=== PATIENT | female | born 1985 | race Two or more races ===

== ENCOUNTER 2016-10-03 03:55 | Emergency (ER) | payer MEDICAID ==
[2016-10-03 04:03] VITALS: BP 129/82; PULSE 90; RESP 18; TEMP 99.3; O2SAT 96
[2016-10-03] MEDS ORDERED: DEXAMETHASONE 4 MG TAB PO ONE (04:29)
[2016-10-03] MEDS ORDERED: ONDANSETRON DISINTEGRATING 4 MG TAB PO ONE (04:30)
[2016-10-03] MEDS ORDERED: HYDROCODONE/APAP 5/325 TAB PO ONE (04:30)
--- NOTE | 2016-10-03 04:36 | EDPHY ---
H & P Time Seen by Provider: 10/03/16 04:01 HPI/ROS: Chief complaint: Sore throat History of present illness: This is a 31-year-old female presents emergency department today with sharp throat pain. She [place] and she felt her throat starting to hurt and felt like it was swelling up. She had a fever of up to 101 F. She denies having shortness of breath, difficulty swallowing but does admit to a sharp and throbbing diffuse headache and body aches. She has been experiencing some chills as well and feels slightly nauseated. Taking fluids well. She denies rash, lightheadedness, visual disturbance, stiff neck, ear pain, cough, or abdominal pain. First day last menstrual period 1 week ago. Has Mirena. The remainder of a 10pt ROS is normal. Past Medical/Surgical History: PMH: kidney stones during PSH: jace, tonsils FH: Father at 49 secondary to [place], DM; Mother alive but had CAD diagnosed in her 40s NKDA Meds: Mirena, occasional Tylenol Social History: Tobacco: 1/2 ppd ETOH: Denied THC50: Daily PCP: [facility] Smoking Status: Current every day smoker Physical Exam: General Appearance: Alert, mild distress. Speaks in full sentences; no drooling Skin: warm, no rash Eyes: Pupils equal and round no pallor or injection. ENT, Mouth: Mucous membranes moist, posterior oropharynx with marked erythema, possible ulceration right; no exudate, uvula midline, no swelling, no petechiae. Neck: supple, tenderness anterior cervical chain right > left; no palpable masses or lymphadenopathy; No meningeal signs. Respiratory: There are no retractions, lungs are clear to auscultation. Cardiovascular: Regular rate and rhythm. Gastrointestinal: Abdomen is soft and nontender, no masses, bowel sounds normal. Neurological: CN II-XII grossly intact, non focal exam; moves all extremities well; gait normal Skin: Warm and dry, no rashes. Musculoskeletal: Neck is supple nontender. Extremities are symmetrical, full range of motion. Psychiatric: Patient is oriented X 3, there is no agitation. DIFFERENTIAL DIAGNOSIS: After history and physical exam differential diagnosis was considered for [ ] Constitutional: Initial Vital Signs Temperature (C) 99.3 F 10/03/16 04:00 Heart Rate 90 07/24/17 04:00 Respiratory Rate 18 10/03/16 04:00 Blood Pressure 129/82 H 10/03/16 04:00 O2 Sat (%) 96 10/03/16 04:00 O2 Delivery Mode Room Air Allergies/Adverse Reactions: No Known Allergies Allergy (Verified 07/16/15 13:34) Home Medications: Medication Instructions Recorded Amoxicillin Trihydrate 2 cap PO Q12H 7 Days 07/16/15 [Amoxicillin 500mg capsule] Hydrocodone/Acetaminophen [[place] 1 - 2 tab PO Q4H PRN #12 tab 07/16/15 5/325 (*)] Multi-Day Vitamins 07/16/15 AMOXICILLIN TRIHYDRATE [Amoxil] 875 mg PO BID #14 tablet 10/03/16 Ondansetron Odt [Zofran Odt 4 mg 4 mg PO TID PRN #6 tab 10/03/16 (*)] predniSONE 20 mg PO BID #20 tablet 10/03/16 Medical Decision Making ED Course/Re-evaluation: The patient was seen and examined, vital signs reviewed. Rapid strep negative, culture pending. The patient was given Decadron 10 mg orally, [place] 07/3251 tablets orally, as well as Zofran 4 mg oral dissolving tablet. She declined IV fluids. She will be given a take-home pack of [place] and a short course of oral steroids and Zofran. She will follow up with her PCP if no improvement or return to the ER sooner if symptoms worsen as discussed. Differential Diagnosis: Includes but is not limited to: Strep throat, viral pharyngitis, viral syndrome , headache, myalgias; no sign of meningitis, peritonsillar or retroperitoneal abscess, mono, Ha's angina - Data Points Laboratory Results: 10/03/16 10/03/16 Unknown 04:10 Group A Strep Screen NEGATIVE (NEGATIVE) Group A Strep DNA Pending Departure - Departure Disposition: Home, Routine, Self-Care Clinical Impression: Pharyngitis Condition: Good Instructions: Pharyngitis (ED), Dexamethasone (By mouth), Prednisone (By mouth) , Ondansetron (By mouth), Amoxicillin (By mouth), Hydrocodone/Acetaminophen (By mouth) Additional Instructions: Only start the amoxicillin if your strep culture returns positive (the result should be back in 2 days). Rest, drink plenty of fluids. Follow up with your doctor if no improvement or return to the ER sooner if worse as discussed. Referrals: Patient,NotPresent [Primary Care Provider] - As per Instructions [facility]. [Clinic] - 2-3 days, if not improved Stand Alone Forms: Work Excuse Prescriptions: AMOXICILLIN TRIHYDRATE [Amoxil] 875 mg PO BID #14 tablet Ondansetron Odt [Zofran Odt 4 mg (*)] 4 mg PO TID PRN #6 tab PRN Reason: Nausea/Vomiting, Use 1st predniSONE 20 mg PO BID #20 tablet
[2016-10-03] MEDS ORDERED: HYDROCOD/APAP 5/325 PREPACK#6 BTL TAKEHOME ONE (04:49)
== END 2016-10-03 05:14 | disposition home or self-care (01) ==
LOC: CED 03:55
DX: J02.9 Acute pharyngitis, unspecified (principal); F17.200 Nicotine dependence, unspecified, uncomplicated
CPT/HCPCS: 87880-PO

== ENCOUNTER 2017-01-03 13:37 | Emergency (ER) | payer MEDICAID ==
[2017-01-03 13:47] VITALS: TEMP 99.1
[2017-01-03] MEDS ORDERED: NS 1,000 ML IV ONE (13:58)
[2017-01-03] MEDS ORDERED: ONDANSETRON 4 MG/2 ML VIAL IVP ONE (13:58)
[2017-01-03] MEDS ORDERED: KETOROLAC 30 MG/1 ML SDV IVP ONE (13:58)
[2017-01-03] MEDS ORDERED: KETOROLAC 15 MG/1 ML SDV ONE (14:00)
--- NOTE | 2017-01-03 14:00 | EDPHY ---
H & P Stated Complaint: N/V/D since last pm. thinks "food poisoning" Source: Patient Exam Limitations: No limitations - Personal History LMP (Females 10-55): IUD In Place Current Tetanus Diphtheria and Acellular Pertussis (TDAP): Yes - Medical/Surgical History Hx Asthma: No Hx Chronic Respiratory Disease: No Hx Diabetes: No Hx Cardiac Disease: No Hx Renal Disease: No Hx Cirrhosis: No Hx Alcoholism: No Hx HIV/AIDS: No Hx Splenectomy or Spleen Trauma: No Other PMH: med hx-kidney stones and urosepsis. surg-tonsils,adenoids, cholycystectomy - Family History Significant Family History: No pertinent family hx - Social History Smoking Status: Heavy smoker Alcohol Use: Sober Drug Use: None Time Seen by Provider: 01/03/17 13:49 HPI/ROS: CHIEF COMPLAINT: Vomiting HISTORY OF PRESENT ILLNESS: The patient is a 31-year-old female with history only significant for cholecystectomy who comes to the emergency department complaining nausea vomiting and diarrhea for the last 16 hours. She thinks that she has food poisoning does not sure what she ate. She has had a temperature up to 101. No blood in her stool or vomit. She complains of abdominal cramping but denies tenderness. She denies risk of . No urinary symptoms. No cardiac or pulmonary symptoms. REVIEW OF SYSTEMS: Constitutional: denies: chills, fever, recent illness, recent injury EENTM: denies: blurred vision, double vision, nose congestion Respiratory: denies: cough, shortness of breath Cardiac: denies: chest pain, irregular heart rate, lightheadedness, palpitations Gastrointestinal/Abdominal: See HPI Genitourinary: denies: dysuria, frequency, hematuria, pain Musculoskeletal: denies: joint pain, muscle pain Skin: denies: lesions, rash, jaundice, bruising Neurological: denies: headache, numbness, paresthesia, tingling, dizziness, weakness Hematologic/Lymphatic: denies: blood clots, easy bleeding, easy bruising Immunologic/allergic: denies: HIV/AIDS, transplant EXAM: GENERAL: Well-appearing, well-nourished and in no acute distress. HEAD: Atraumatic, normocephalic. EYES: Pupils equal round and reactive to light, extraocular movements intact, sclera anicteric, conjunctiva are normal. ENT: TMs normal, nares patent, oropharynx clear without exudates. Moist mucous membranes. NECK: Normal range of motion, supple without lymphadenopathy or JVD. LUNGS: Breath sounds clear to auscultation bilaterally and equal. No wheezes rales or rhonchi. HEART: Regular rate and rhythm without murmurs, rubs or gallops. ABDOMEN: Soft, nontender, normoactive bowel sounds. No guarding, no rebound. No masses appreciated. BACK: No CVA tenderness, no spinal tenderness, step-offs or deformities EXTREMITIES: Normal range of motion, no pitting or edema. No clubbing or cyanosis. NEUROLOGICAL: Cranial nerves II through XII grossly intact. Normal speech, normal gait. 5/5 strength, normal movement in all extremities, normal sensation PSYCH: Normal mood, normal affect. SKIN: Warm, dry, normal turgor, no visible rashes or lesions. (Keron Tolbert) Constitutional: Initial Vital Signs Temperature (C) 37.3 C 01/03/17 13:41 Heart Rate 97 01/03/17 13:41 Respiratory Rate 16 01/03/17 13:41 Blood Pressure 120/87 H 01/03/17 13:41 O2 Sat (%) 96 01/03/17 13:41 O2 Delivery Mode Room Air Allergies/Adverse Reactions: No Known Allergies Allergy (Verified 01/03/17 13:47) Home Medications: Medication Instructions Recorded Multi-Day Vitamins 07/16/15 Dicyclomine [Bentyl 10 MG (*)] 10 mg PO QID PRN #6 cap 01/03/17 Fish Oil 1,000 mg Capsule 01/03/17 Ondansetron Odt [Zofran Odt 4 mg 4 mg PO Q4 PRN #6 tab 01/03/17 (*)] Medical Decision Making ED Course/Re-evaluation: I assumed care of this patient at change of shift, 1500 hours. I discussed the case with the off going physician. As reflected in their note, this is a woman with a viral syndrome without any focal tenderness or focal abdominal pain. At that time she had already received Zofran 4 mg and ketorolac 15 mg and was feeling better as far as her abdominal distress and nausea. However, as she is still having some cramping they subsequently gave IV dosing of lidocaine and p.o. Bentyl. As she had evidence of volume depletion she was given 2 L of normal saline. I reviewed the chart and examine the patient as well as injury the patient She essentially has no risk factors for bacterial dysentery: Travel: None Others: None Antibiotics: None Bad Food: None Bad Water: None Recent Surgery: None Illness started at 7:00 p.m. last night. Throughout the evening and into the night she had multiple episodes of both diarrhea and vomiting, at times concomitantly. There is no syncope though she did feel weak. She has been unable to handle any fluids since 6:00 p.m. last night. She feels quite try the mouth and still does so even though she has already she had 2 L of fluid by 3:50 p.m. for her clinical signs of volume depletion. The weakness she had was standing has since resolved. In fact she feels markedly improved. Throughout the night there was generalized diffuse migratory abdominal pain. She is able to stand at all times and there is no pain with walking or standing erect or the bumps in the road on the car ride here. She has had no known exposure. No one else is currently sick. At this point in time is essentially mild episodic waves of abdominal cramps, no pain. She has had no fevers or chills or dysuria frequency or vaginal discharge or chest pain or cough or shortness of breath phlegm or earache or sore throat.\\ PE at this time: Mucous membranes slightly dry Abdomen bowel sounds present. Nondistended. Soft. Traces of mild diffuse tenderness. No focal tenderness. She is able to walk. We had a lengthy discussion of her presenting symptomatology and likelihood of a norovirus etiology for her viral gastroenteritis. At the same token she should improve over the ensuing 12:36 p.m. six hours. At however, if she has ongoing symptoms on morning she should return for reexamination and consideration of stool culture it. No indication of needed needed at this time. Likewise there is no indication of appendicitis or pyelonephritis or diverticulitis. Going forward, she will have Андрей for symptomatic management. If instead symptoms are getting worse in the near term such as the next 12 hours he should return for further diagnostic consideration. (Óscar Hernandez) Differential Diagnosis: Differential diagnosis includes, but is not limited to: Gastroenteritis, dehydration, diverticulitis, hepatitis, pancreatitis, renal colic, kidney stones, ureterolithiasis, cholecystitis, appendicitis, gastritis, mesenteric adenitis, food poisoning, bacterial dysentery. (Óscar Hernandez) - Data Points Laboratory Results: Laboratory Results 01/03/17 14:00 01/03/17 14:00 Medications Given: Discontinued Medications Dicyclomine HCl (Bentyl) 20 mg PO EDNOW ONE Stop: 01/03/17 14:36 Last Admin: 01/03/17 14:51 Dose: 20 mg Sodium Chloride (Ns) 1,000 mls @ 0 mls/hr IV EDNOW ONE; Wide Open PRN Reason: Protocol Stop: 01/03/17 13:59 Last Admin: 01/03/17 14:07 Dose: 1,000 mls Lidocaine HCl 100 mg/ Sodium (Chloride) 110 mls @ 600 mls/hr IV EDNOW ONE Stop: 01/03/17 14:45 Last Admin: 01/03/17 14:53 Dose: 110 mls Ketorolac Tromethamine (Toradol) 30 mg IVP EDNOW ONE Stop: 01/03/17 13:59 Last Admin: 01/03/17 14:07 Dose: 30 mg Ondansetron HCl (Zofran) 4 mg IVP EDNOW ONE Stop: 01/03/17 13:59 Last Admin: 01/03/17 14:09 Dose: 4 mg Departure - Departure Disposition: Home, Routine, Self-Care Clinical Impression: Gastroenteritis, Viral syndrome, Dehydration Condition: Good Instructions: Dehydration (ED), Gastroenteritis (ED) Additional Instructions: Zofran for the nausea Bentyl for the abdominal cramping and discomfort Clear liquids for the next 12 hours and then advance her diet over the next 24 hours You should be back to normal certainly no worse over the intervening 24-36 hours by morning. Recheck at that time if you are still ill sooner if there is ongoing abdominal pain, worse Referrals: [facility],. [Primary Care Provider] - As per Instructions Stand Alone Forms: Work Excuse Prescriptions: Dicyclomine [Bentyl 10 MG (*)] 10 mg PO QID PRN #6 cap PRN Reason: Mild to moderate abdomen pain Ondansetron Odt [Zofran Odt 4 mg (*)] 4 mg PO Q4 PRN #6 tab PRN Reason: Nausea
[2017-01-03 14:09] LABS: % IMMATURE GRANULYOCYTES 0.3 % (0.0-1.1); ABSOLUTE IMMATURE GRANULOCYTES 0.05 10^3/uL (0.00-0.10); ADD DIFF? NO; ADD MORPH? NO; ADD SCAN? NO; ATYPICAL LYMPHOCYTE FLAG 0 (0-99); FRAGMENT RBC FLAG 0 (0-99); HEMATOCRIT 43.1 % (38.0-47.0); HEMOGLOBIN 15.4 g/dL (12.6-16.3); LEFT SHIFT FLG 0 (0-99); LIPEMIA HEMOLYSIS FLAG 90 (0-99); MEAN CELL HEMOGLOBIN 31.4 pg (27.9-34.1); MEAN CELL HEMOGLOBIN CONCENTR. 35.7 g/dL (32.4-36.7); MEAN CELL VOLUME 87.8 fL (81.5-99.8); MEAN PLATELET VOLUME 8.8 fL (8.7-11.7); PLATELET CLUMPS FLAG 0 (0-99); PLATELET COUNT 362 10^3/uL (150-400); RED BLOOD CELL COUNT 4.91 10^6/uL (4.18-5.33); RED CELL DISTRIBUTION WIDTH 12.7 % (11.5-15.2)
[2017-01-03 14:27] LABS: ALANINE AMINOTRANSFERASE 43 IU/L (9-52); ALBUMIN 4.4 g/dL (3.5-5.0); ALKALINE PHOSPHATASE 63 IU/L (38-126); ANION GAP 11 mEq/L (8-16); ASPARTATE AMINOTRANSFERASE 18 IU/L (14-46); BILIRUBIN,TOTAL 0.9 mg/dL (0.1-1.4); BILIRUBIN-CONJUGATED 0.4 mg/dL (0.0-0.5); BILIRUBIN-UNCONJUGATED 0.5 mg/dL (0.0-1.1); CALCIUM 9.5 mg/dL (8.5-10.4); CARBON DIOXIDE 23 mEq/l (22-31); CHLORIDE 105 mEq/L (97-110); CREATININE 0.6 mg/dL (0.6-1.0); GLOMERULAR FILTRATION RATE > 60; GLUCOSE 84 mg/dL (70-100); POTASSIUM 3.6 mEq/L (3.5-5.2); SODIUM 139 mEq/L (134-144); TOTAL PROTEIN 6.9 g/dL (6.3-8.2)
[2017-01-03] MEDS ORDERED: LIDOCAINE 1% 100 MG in NS 100 ML IV ONE (14:35)
[2017-01-03] MEDS ORDERED: DICYCLOMINE 10 MG CAP PO ONE (14:35)
[2017-01-03 16:18] VITALS: BP 122/62; PULSE 74; RESP 18; O2SAT 97
== END 2017-01-03 16:16 | disposition home or self-care (01) ==
LOC: CED 13:37
PROC: 3E0337Z Introduction of Electrolytic and Water Balance Substance into Peripheral Vein, Percutaneous Approach (ICD-10-PCS; principal; 2017-01-03)
DX: K52.9 Noninfective gastroenteritis and colitis, unspecified (principal); E86.0 Dehydration; B34.9 Viral infection, unspecified; E86.9 Volume depletion, unspecified; F17.200 Nicotine dependence, unspecified, uncomplicated
CPT/HCPCS: 80048-PO; 80076-PO; 83690-PO; 84703-PO; 85025-PO; 96365; J1885; J2405

== ENCOUNTER 2017-12-03 12:06 | Emergency (ER) | payer MEDICAID ==
[2017-12-03 12:15] VITALS: BP 120/75
== END 2017-12-03 12:20 | disposition left against medical advice (07) ==
LOC: CED 12:06
DX: H53.8 Other visual disturbances (principal); M54.2 Cervicalgia; R20.9 Unspecified disturbances of skin sensation

== ENCOUNTER 2018-05-28 21:59 | Emergency (ER) | payer MEDICAID ==
[2018-05-28] MEDS ORDERED: IPRATROPIUM/ALBUTEROL 3 ML DEYVIAL IH ONE (22:07)
[2018-05-28] MEDS ORDERED: IPRATROPIUM/ALBUTEROL 3 ML DEYVIAL ONE (22:14)
--- NOTE | 2018-05-28 22:15 | EDPHY ---
H & P Time Seen by Provider: 05/28/18 22:07 HPI/ROS: This patient reports nasal congestion over the past 2 weeks and over the past 5- 7 days she has developed a cough with development of some mucus production over the past 24 hr that is giving her a choking feeling in her upper airway at times. This improves when she is able to produce sputum. She reports mild burning discomfort in her chest associated with the coughing but no significant pain in her chest at rest. She has associated subjective fevers. She reports mild sinus pressure in the frontal sinus area as well bilaterally. Finally, she reports mild ear pressure bilaterally. ROS: Constitutional: No chills. HEENT: No sore throat Pulmonary: No hemoptysis. No respiratory distress That she does have some dyspnea. Cardiovascular: Mild lightheadedness at times. No chest pain at rest. No leg swelling or calf pain. GI: No nausea vomiting or abdominal pain Integumentary: No complaints 7 point review of symptoms is performed and otherwise negative with exception of pertinent positives and negatives listed in HPI and ROS Social History: Occasional marijuana. No alcohol use. Smoking Status: Heavy smoker Physical Exam: Physical Exam Vital signs are normal. General: No acute distress HEENT: Nose: Clear discharge bilaterally. No sinus tenderness to percussion. Ears: External canals and tympanic membranes are clear with no erythema or abnormal findings bilaterally. Oropharynx: Mildly hoarse voice. No erythema or exudates. No drooling or stridor. Eyes: Pupils equal and react to light. Extraocular motions are intact. Neck: Supple with no meningismus. No lymphadenopathy Lungs: Rhonchi and mild wheeze bilaterally. No rales. No respiratory distress Cardiac: Regular rate and rhythm with no murmur gallop or rub Skin: No rash or pallor. Neuro: Alert with no focal deficits noted. Initial differential diagnosis: Acute bronchitis, influenza, mild laryngitis, doubt pneumonia Constitutional: Initial Vital Signs Temperature (C) 37.2 C 05/28/18 22:01 Heart Rate 96 05/28/18 22:01 Respiratory Rate 18 05/28/18 22:01 Blood Pressure 116/73 05/28/18 22:01 O2 Sat (%) 97 05/28/18 22:01 O2 Delivery Mode Room Air Allergies/Adverse Reactions: No Known Allergies Allergy (Verified 01/03/17 13:47) Home Medications: Medication Instructions Recorded Azithromycin [Zithromax] 250 mg PO DAILY #6 tab 05/28/18 MDM/Departure - MDM Diagnostics: Rapid flu swab is negative Medications Given: Discontinued Medications Albuterol/Ipratropium (Duoneb) 3 ml IH EDNOW ONE Stop: 05/28/18 22:08 Last Admin: 05/28/18 22:13 Dose: 3 ml ED Course/Re-evaluation: DuoNeb shortly after arrival - Depart Disposition: Home, Routine, Self-Care Clinical Impression: Acute bronchitis Qualifiers: Bronchitis organism: unspecified organism Qualified Code(s): J20.9 - Acute bronchitis, unspecified Condition: Good Instructions: Acute Bronchitis (ED) Additional Instructions: Diagnosis: Acute bronchitis Plan: Humidifier Albuterol inhaler for cough, wheeze or shortness of breath Zithromax antibiotic Follow-up with primary care physician if not improving with treatment plan over the next 5 days Return for any significant worsening despite the treatment plan Referrals: Melani Martinez MD [Medical Doctor] - As per Instructions
[2018-05-28] MEDS ORDERED: ALBUTEROL INH PREPACK MDI TAKEHOME ONE (22:41)
[2018-05-28] MEDS ORDERED: AZITHROMYCIN 250 MG TAB PO ONE (22:41)
[2018-05-28 23:07] VITALS: BP 121/74
== END 2018-05-28 23:10 | disposition home or self-care (01) ==
LOC: CED 21:59
DX: J20.9 Acute bronchitis, unspecified (principal); F17.200 Nicotine dependence, unspecified, uncomplicated
CPT/HCPCS: 87400-QW-ER; 99283-ER